=== PATIENT | female | born 1940 | race Caucasian/White ===

== ENCOUNTER 2022-01-30 16:57 | Inpatient (IN) | payer OTHER ==
[2022-01-30 18:17] LABS: SARS-COV-2 RT PCR NEGATIVE (NEGATIVE)
--- OUTSIDE RECORDS SUMMARY | 2022-01-30 18:40 | XMS REPORT | Continuity of Care Document ---
:1940 Author Organization [facility] t Address [address] [place] [address] Care Team Providers Name Role Phone Glenda V Primary Care Physician DANY PINO Attending Clinician Unavailable Nurse, Pob Immunization Attending Clinician Unavailable Dany Pino DO Attending Clinician Celia Berg DO Attending Clinician Nurse, Urgent Care Attending Clinician Unavailable Bianka FOOD SERVICE AIDE Attending Clinician BIANKA Attending Clinician Unavailable Lab, Fam Pob I Attending Clinician Unavailable Karoline Barry Attending Clinician Karoline PRAJAPATI Attending Clinician Unavailable Doctor Unassigned, Name Attending Clinician Unavailable Payers Payer Name Policy Type Policy Number Effective Date Expiration Date S ource MEDICARE PART A [id number] 2007 \T\ B 00:00:00 Problems Condition Condition Condition Status Onset Resolution Last Treating Co mments Source Name Details Category Date Date Treatment Clinician Date Influenza Influenza Disease Active Uni vers 12-27 ity of 00:00: [address] Allergies, Adverse Reactions, Alerts Allergy Allergy Status Severity Reaction(s) Onset Inactive Treating Comm ents Source Name Type Date Date Clinician BENZALKO DRUG Active Rash 2016-10 Univers NIUM INGREDI 2- ity of CHLORIDE 00:00: [address] Branch Adhesive Propensi Active Rash 2016-10 Univer s ty to 2-19 ity of adverse 00:00: [place] reaction 00 Medical s Branch Prochlor Propensi Active Extra 2016-10 Univer s perazine ty to pyramidal 2-19 ity o f Edisylat adverse effects 00:00: [place] e reaction 00 Medical Branch Benzalko Propensi Active Rash 2016-10 Univer s nium ty to 2-19 ity of Chloride adverse 00:00: [place] reaction 00 [facility] Branch ADHESIVE Drug Active Rash 2016-10 Univers Class 2-19 ity of 00:00: [place] 00 [facility] Branch PROCHLOR DRUG Active EP Effects 2016-10 Univ ers PERAZINE INGREDI 11-23 ity of EDISYLAT 00:00: [place] E 00 Medical Branch Social History Social Habit Start Date Stop Date Quantity Comments Source Exposure to Not sure [facility]-CoV-2 [facility] (event) [place] Alcohol intake 2021-05-11 2021-05-11 Current University 00:00:00 00:00:00 non-drinker of [facility] alcohol [place] (finding) Tobacco use and 2018-12-25 2018-12-25 Never used Universit y of exposure 00:00:00 00:00:00 [facility] Sex Assigned At [birth year] Universit y of 00:00:00 00:00:00 [facility] Smoking Status Start Date Stop Date Source Never smoker [facility] Medications Ordered Filled Start Stop Current Ordering Indication Dosage Frequency Signature Comments Components Source Medication Medication Date Date Medication? Clinician (SIG) Name Name fluorescein 2020- No 1{strip 1 Strip, Univers (FUL-ISRRAEL) 05-11 } Left Eye, ity of ophthalmic 20:30: 19:29 ONCE, 1 [place] as strip 1 00 :00 dose, [facility] Strip 05/11/21 at Branch 1530, Routine
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
Reaso n for non-formul monisha use: SPECIFIC INDICATION FOR NONFORMULA RY PRODUCT tetracaine 2020- No 1[drp] 1 Drop, U nivalexis (PONTOCAINE 05-11 Left Eye, it y of ) 0.5 % 20:30: 19:29 ONCE, 1 [place] ophthalmic 00 :00 dose, Sat Medi wolfgang drops 1 05/11/21 at Branch Drop 1530, Routine ALPRAZolam Yes [id number] .25mg Take 1 Univers (XANAX) 3-28 tablet by ity of 0.25 mg 00:00: mouth 3 [place] tablet 00 (three) Medical times Branch daily as needed for Other (stress). ALPRAZolam Yes [id number] .25mg Take 1 Univers (XANAX) 3-28 tablet by ity of 0.25 mg 00:00: mouth 3 [place] tablet 00 (three) Medical times Branch daily as needed for Other (stress). ALPRAZolam Yes [id number] .25mg Take 1 Univers (XANAX) 3-28 tablet by ity of 0.25 mg 00:00: mouth 3 [place] tablet 00 (three) Medical times Branch daily as needed for Other (stress). ALPRAZolam Yes [id number] .25mg Take 1 Univers (XANAX) 3-28 tablet by ity of 0.25 mg 00:00: mouth 3 [place] tablet 00 (three) Medical times Branch daily as needed for Other (stress). ALPRAZolam Yes [id number] .25mg Take 1 Univers (XANAX) 3-28 tablet by ity of 0.25 mg 00:00: mouth 3 [place] tablet 00 (three) Medical times Branch daily as needed for Other (stress). ALPRAZolam Yes [id number] .25mg Take 1 Univers (XANAX) 3-28 tablet by ity of 0.25 mg 00:00: mouth 3 [place] tablet 00 (three) Medical times Branch daily as needed for Other (stress). ALPRAZolam Yes [id number] .25mg Take 1 Univers (XANAX) 3-28 tablet by ity of 0.25 mg 00:00: mouth 3 [place] tablet 00 (three) Medical times Branch daily as needed for Other (stress). ALPRAZolam 0 Yes [id number] .25mg Take 1 Univers (XANAX) 3-28 tablet by ity of 0.25 mg 00:00: mouth 3 [place] tablet 00 (three) Medical times Branch daily as needed for Other (stress). ALPRAZolam Yes [id number] .25mg Take 1 Univers (XANAX) 3-28 tablet by ity of 0.25 mg 00:00: mouth 3 [place] tablet 00 (three) Medical times Branch daily as needed for Other (stress). ALPRAZolam Yes [id number] .25mg Take 1 Univers (XANAX) 3-28 tablet by ity of 0.25 mg 00:00: mouth 3 [place] tablet 00 (three) Medical times Branch daily as needed for Other (stress). adalimumab Yes inject Unive rs 40 mg/0.8 3-27 under the ity o f mL 20:59: skin. [place] injection 15 Medical Branch zolpidem Yes 10mg Take 10 mg Uni vers (AMBIEN) 10 3-27 by mouth ity of mg tablet 20:59: at bedtime [place] 15 as needed Medical for Branch Insomnia. adalimumab Yes inject Unive rs 40 mg/0.8 3-27 under the ity o f mL 20:59: skin. [place] injection 15 Medical Branch zolpidem Yes 10mg Take 10 mg Uni vers (AMBIEN) 10 3-27 by mouth ity of mg tablet 20:59: at bedtime [place] 15 as needed Medical for Branch Insomnia. adalimumab Yes inject Unive rs 40 mg/0.8 3-27 under the ity o f mL 20:59: skin. [place] injection 15 Medical Branch zolpidem Yes 10mg Take 10 mg Uni vers (AMBIEN) 10 3-27 by mouth ity of mg tablet 20:59: at bedtime [place] 15 as needed Medical for Branch Insomnia. adalimumab Yes inject Unive rs 40 mg/0.8 3-27 under the ity o f mL 20:59: skin. [place] injection 15 Medical Branch zolpidem Yes 10mg Take 10 mg Uni vers (AMBIEN) 10 3-27 by mouth ity of mg tablet 20:59: at bedtime [place] 15 as needed Medical for Branch Insomnia. adalimumab Yes inject Unive rs 40 mg/0.8 3-27 under the ity o f mL 15:59: skin. [place] injection 15 Medical Branch zolpidem Yes 10mg Take 10 mg Uni vers (AMBIEN) 10 3-27 by mouth ity of mg tablet 15:59: at bedtime [place] 15 as needed Medical for Branch Insomnia. loperamide 2019-0 Yes [id number] 2mg Take 1 Univers 2 mg 3-27 capsule by ity of capsule 00:00: mouth [place] 00 every 4 Medical (four) Branch hours as needed for Diarrhea. levoFLOXaci 2019-0 Yes [id number] 750mg Take 1 Univers n 750 mg 3-27 tablet by ity of tablet 00:00: mouth [place] 00 every 24 Medical (twenty-fo Branch ur) hours. benzonatate 2019-0 Yes [id number] 100mg Take 1 Univers 100 mg 3-27 capsule by ity of capsule 00:00: mouth 3 [place] 00 (three) Medical times Branch daily as needed for Cough. loperamide 2019-0 Yes [id number] 2mg Take 1 Univers 2 mg 3-27 capsule by ity of capsule 00:00: mouth [place] 00 every 4 Medical (four) Branch hours as needed for Diarrhea. levoFLOXaci 2019-0 Yes [id number] 750mg Take 1 Univers n 750 mg 3-27 tablet by ity of tablet 00:00: mouth [place] 00 every 24 Medical (twenty-fo Branch ur) hours. benzonatate 2019-0 Yes [id number] 100mg Take 1 Univers 100 mg 3-27 capsule by ity of capsule 00:00: mouth 3 [place] 00 (three) Medical times Branch daily as needed for Cough. loperamide 2019-0 Yes [id number] 2mg Take 1 Univers 2 mg 3-27 capsule by ity of capsule 00:00: mouth [place] 00 every 4 Medical (four) Branch hours as needed for Diarrhea. levoFLOXaci 2019-0 Yes [id number] 750mg Take 1 Univers n 750 mg 3-27 tablet by ity of tablet 00:00: mouth [place] 00 every 24 Medical (twenty-fo Branch ur) hours. benzonatate 2019-0 Yes [id number] 100mg Take 1 Univers 100 mg 3-27 capsule by ity of capsule 00:00: mouth 3 [place] 00 (three) Medical times Branch daily as needed for Cough. loperamide 2019-0 Yes [id number] 2mg Take 1 Univers 2 mg 3-27 capsule by ity of capsule 00:00: mouth [place] 00 every 4 Medical (four) Branch hours as needed for Diarrhea. levoFLOXaci 2019-0 Yes [id number] 750mg Take 1 Univers n 750 mg 3-27 tablet by ity of tablet 00:00: mouth [place] 00 every 24 Medical (twenty-fo Branch ur) hours. benzonatate 2019-0 Yes [id number] 100mg Take 1 Univers 100 mg 3-27 capsule by ity of capsule 00:00: mouth 3 [place] 00 (three) Medical times Branch daily as needed for Cough. loperamide 2019-0 Yes [id number] 2mg Take 1 Univers 2 mg 3-27 capsule by ity of capsule 00:00: mouth [place] 00 every 4 Medical (four) Branch hours as needed for Diarrhea. levoFLOXaci 2019-0 Yes [id number] 750mg Take 1 Univers n 750 mg 3-27 tablet by ity of tablet 00:00: mouth [place] 00 every 24 Medical (twenty-fo Branch ur) hours. benzonatate 2019-0 Yes [id number] 100mg Take 1 Univers 100 mg 3-27 capsule by ity of capsule 00:00: mouth 3 [place] 00 (three) Medical times Branch daily as needed for Cough. ondansetron 2018- Yes 4mg Take 1 Univ ers (ZOFRAN 2-15 tablet by ity of ODT) 4 mg 00:00: mouth [place] disintegrat 00 every 8 Medic al ing tablet (eight) Branch hours as needed for Nausea and Vomiting (N/V). ondansetron 2018- Yes 4mg Take 1 Univ ers (ZOFRAN 2-15 tablet by ity of ODT) 4 mg 00:00: mouth [place] disintegrat 00 every 8 Medic al ing tablet (eight) Branch hours as needed for Nausea and Vomiting (N/V). ondansetron 2018- Yes 4mg Take 1 Univ ers (ZOFRAN 2-15 tablet by ity of ODT) 4 mg 00:00: mouth [place] disintegrat 00 every 8 Medic al ing tablet (eight) Branch hours as needed for Nausea and Vomiting (N/V). ondansetron 2018-1 Yes 4mg Take 1 Univ ers (ZOFRAN 2-15 tablet by ity of ODT) 4 mg 00:00: mouth [place] disintegrat 00 every 8 Medic al ing tablet (eight) Branch hours as needed for Nausea and Vomiting (N/V). ondansetron 2018- Yes 4mg Take 1 Univ ers (ZOFRAN 2-15 tablet by ity of ODT) 4 mg 00:00: mouth [place] disintegrat 00 every 8 Medic al ing tablet (eight) Branch hours as needed for Nausea and Vomiting (N/V). naproxen 2016-10 Yes 550mg Take 1 Univer s sodium 2-19 tablet by ity of (ANAPROX 00:00: mouth 2 [place] DS) 550 mg 00 (two) Medical tablet times Branch daily with meals. naproxen 2016-10 Yes 550mg Take 1 Univer s sodium 2-19 tablet by ity of (ANAPROX 00:00: mouth 2 [place] DS) 550 mg 00 (two) Medical tablet times Branch daily with meals. naproxen 2016-10 Yes 550mg Take 1 Univer s sodium 2-19 tablet by ity of (ANAPROX 00:00: mouth 2 [place] DS) 550 mg 00 (two) Medical tablet times Branch daily with meals. naproxen 2016-10 Yes 550mg Take 1 Univer s sodium 2-19 tablet by ity of (ANAPROX 00:00: mouth 2 [place] DS) 550 mg 00 (two) Medical tablet times Branch daily with meals. naproxen 2016-10 Yes 550mg Take 1 Univer s sodium 2-19 tablet by ity of (ANAPROX 00:00: mouth 2 [place] DS) 550 mg 00 (two) Medical tablet times Branch daily with meals. Immunizations Ordered Filled Immunization Date Status Comments [facility] Immunization Name Name SARS-COV-2 COVID-19 2021-08-[address] [facility] PFIZER VACCINE 00:00:00 [facility] Td 2021-05-11 Completed [facility] 00:00:00 [facility] Td 2021-05-11 Completed [facility] 00:00:00 [facility] Vital Signs Vital Name Observation Time Observation Value Comments Source Systolic blood 2021-05-11 19:02:00 208 mm[Hg] Univer sity of pressure [facility] Diastolic blood 2021-05-11 19:02:00 95 mm[Hg] Unive rsity of pressure [facility] Heart rate 2021-05-11 19:02:00 78 /min [facility] Body temperature 2021-05-11 19:02:00 36.61 Jayda [facility] Respiratory rate 2021-05-11 19:02:00 16 /min [facility] Body height 2021-05-11 19:02:00 165.1 cm [facility] Body weight 2021-05-11 19:02:00 77.111 kg [facility] BMI 2021-05-11 19:02:00 28.29 kg/m2 [facility] Oxygen saturation in 2021-05-11 19:02:00 96 /min University of Arterial blood by [facility] Pulse oximetry Branch Systolic blood 2021-05-11 18:40:00 204 mm[Hg] Univer sity of [facility] Diastolic blood 2021-05-11 18:40:00 100 mm[Hg] Unive rsity of [facility] Heart rate 2021-05-11 18:38:00 77 /min [facility] Body temperature 2021-05-11 18:38:[address] [facility] rate 2021-05-11 18:38:00 18 /min [facility] O[facility] in 2021-05-11 18:38:00 97 /min [facility] Arterial blood by [facility] Pulse oximetry Branch Procedures Procedure Date / Time Performed Performing Clinician Sour e SARS-COV-2 COVID-19 2021-08-21 20:58:20 Doctor Unassigned, No [facility] [place] VACCINE,0.3ML,IM [facility] (PFIZER) CONSENT/REFUSAL FOR 2021-05-11 18:50:42 Doctor Unassigned, No [facility] [place] DIAGNOSIS AND Name Medical [place] TREATMENT ASSIGNMENT OF BENEFITS 2020-07-19 18:54:15 Doctor Unassigned, No [facility] Encounters Start End Encounter Admission Attending Care Care Encounter Source Date/Time Date/Time Type Type Clinicians Facility Department ID 2021-08-05 Emergency [facility] [id number] Univers 13:51:26 logan [facility] 2021-08-21 2021-08-21 Outpatient Germaine PINO [facility] [id number] Univers 13:30:00 13:29:40 FELIZ ford [facility] 2021-08-21 2021-08-21 Imm/Inj Nurse, Adc Pob Immunization [facility] [id number] Univers 13:29:27 13:29:40 Visit Feliz Pinoan AMANDEEP [id number] .10 ity of [id number] [phone] Tn dical NAL [address] [facility] 2021-05-11 2021-05-11 Emergency Jani, [facility] [id number] Univers 13:56:00 15:29:00 Eugenia Yang [place] [id number] ity of [place] [id number] [place] [phone] [facility] 084 [place] 2021-05-11 2021-05-11 Nurse Nurse, [facility] [id number] Univers 13:36:41 13:53:33 Visit Tiffany Vargastany [facility] [id number] ity of [place] [id number] Toy as Professio [phone] Tn dical nal 044 [place] Office [facility] 2021-05-11 2021-05-11 Outpatient R [facility] [id number] Univers 13:45:00 13:45:00 [id number] ity [facility] 2021-05-11 2021-05-11 Outpatient R BIANKA [facility] [id number] Univers 13:45:00 13:45:00 SHANI ortiznimisha o f [facility] 2020-07-19 2020-07-19 Laboratory Lab, [facility] Fam Pob I [facility] [id number]. [id number] Univers 13:56:32 14:16:32 Only Luly Prajapati [facility] [id number] ity of [place] [id number] Toy as Professio [phone] Tn dical nal 044 [place] Office [facility] 2020-07-19 2020-07-19 Outpatient R ENZO [facility] [id number] Univers 14:00:00 14:00:00 LULY ity [facility] 2020-07-19 2020-07-19 Outpatient R [facility] [id number] Univers 13:40:00 13:40:00 ity [facility] 2020-07-19 2020-07-19 Outpatient R [facility] [id number] Univers 13:40:00 13:40:00 [id number] ity of [facility] 2020-07-19 2020-07-19 Orders Doctor KATHIE [id number] Univers 00:00:00 00:00:00 Only Unassigned, V[place] [id number] ity of [place] [facility] [id number] Toy as [phone] [place] [address] Branch Results This patient has no known results.
[2022-01-30] MEDS ORDERED: ACETAMINOPHEN 325 MG TABLET PO PRN (21:10)
[2022-01-30 21:11] LABS: Absolute Lymphocytes (CBC) 2.1 K/uL (0.7-4.9); Hematocrit 41.4 % (36.0-45.0); Lymphocytes % 17.4 % (15.3-44.8); MPV 7.8 fL (7.6-11.3); RBC Red Blood Cell Count 4.84 M/uL (3.86-4.86)
[2022-01-30 21:16] LABS: Protime INR 0.97
[2022-01-30 21:38] LABS: Albumin 3.9 g/dL (3.4-5.0); Bilirubin Direct 0.1 mg/dL (0-0.2); Bilirubin Total 0.8 mg/dL (0.2-1.0); Potassium 3.8 mmol/L (3.5-5.1); Protein, Total 8.1 g/dL (6.4-8.2)
[2022-01-30] MEDS ORDERED: POLYETHYL GLY 3350 17 GM/DOSE PO PRN (22:00)
[2022-01-30] MEDS ORDERED: ONDANSETRON 4 MG/2 ML VIAL IV PRN (22:00)
[2022-01-30] MEDS ORDERED: ACYCLOVIR INJ 600 MG in NA CHLORIDE 0.9% 100 ML IVPB SCH (22:00)
--- NOTE | 2022-01-30 22:16 | RAD REPORT ---
EXAM DESCRIPTION: RAD - Chest Single View - 01/30/2022 10:11 pm CLINICAL HISTORY: Routine Admission Chest pain. COMPARISON: Chest Pa And Lat (2 Views) dated 04/23/2018 FINDINGS: Portable technique limits examination quality. The lungs are grossly clear. The heart is normal in size. No displaced fractures. IMPRESSION: No acute intrathoracic process suspected.
[2022-01-30] MEDS ORDERED: NA CHLORIDE 0.9% 100 ML ONE (22:24)
[2022-01-30] MEDS: NACHLORIDE 0.45% 1,000 ML IV SCH (22:31)
[2022-01-30] MEDS: dexAMETHasone 4 MG/ML VIAL IV SCH (22:31)
[2022-01-30] MEDS: HYDROMORPHONE HCL 1 MG/ML INJ IV PRN (22:48)
[2022-01-30 22:50] LABS: Phosphorus 3.7 mg/dL (2.5-4.9)
[2022-01-30 22:59] LABS: Thyroid Stimulating Hormone 4.6 uIU/mL (0.360-3.740)
[2022-01-30] MEDS: ALPRAZOLAM 0.25 MG TABLET PO PRN (23:25)
[2022-01-30 23:46] VITALS: BMI 27.8
[2022-01-31 04:36] LABS: Urine Appearance Clear (Clear); Urine Bilirubin Negative (Negative); Urine Blood Trace-intact (Negative); Urine Color Yellow (Yellow); Urine Glucose Negative (Negative); Urine Protein 1+ (Negative); Urine Specific Gravity >=1.030 (1.005-1.030); Urine Urobilinogen 0.2 mg/dL (0.2-1.0); Urine pH 5.5 (5.0-7.0)
[2022-01-31 04:40] LABS: Urine Microscopic Reflex ORDER UMIC
[2022-01-31 04:42] LABS: Calcium Oxalate Crystals- Ur MANY (NONE SEEN); Urine Bacteria 20-50 /HPF (<20); Urine Mucus 2+ /HPF (NONE SEEN)
[2022-01-31 06:11] LABS: Absolute Lymphocytes (CBC) 1.2 K/uL (0.7-4.9); Hematocrit 36.5 % (36.0-45.0); Lymphocytes % 13.4 % (15.3-44.8); MPV 8.3 fL (7.6-11.3); RBC Red Blood Cell Count 4.23 M/uL (3.86-4.86)
[2022-01-31 06:26] LABS: Potassium 4.2 mmol/L (3.5-5.1)
[2022-01-31] MEDS ORDERED: ZOLPIDEM TARTRATE 10 MG TABLET PO PRN (07:00)
--- NOTE | 2022-01-31 07:42 | EKG ---
Test Date: 2022-01-31 Test Time: 02:44:48 Environmental Engineer: RT Cuadra MEASUREMENT RESULTS: Intervals: Rate: 84 [place]: 152 QRSD: 140 QT: 432 QTc: 510 [place]: P: 63 [place]: 152 QRS: -54 T: 97 INTERPRETIVE STATEMENTS: Normal sinus rhythm with sinus arrhythmia Left axis deviation Left bundle branch block Abnormal ECG Compared to ECG 01/31/2022 02:44:04 Uncertain supraventricular rhythm no longer present Electronically Signed On 01-31-22 07:42:05 CDT by Kyle Bell
--- NOTE | 2022-01-31 07:42 | EKG ---
Test Date: 2022-01-31 Test Time: 02:46:06 Medical Technologist Chemistry: RT Cuadra MEASUREMENT RESULTS: Intervals: Rate: 81 [place]: 140 QRSD: 72 QT: 384 QTc: 446 [place]: P: 60 [place]: 140 QRS: 71 T: -62 INTERPRETIVE STATEMENTS: Normal sinus rhythm ST & T wave abnormality, consider inferior ischemia ST & T wave abnormality, consider anterolateral ischemia Abnormal ECG Compared to ECG 01/31/2022 02:44:48 ST (T wave) deviation now present Possible ischemia now present Sinus arrhythmia no longer present Left-axis deviation no longer present Left bundle-branch block no longer present Electronically Signed On 01-31-22 07:42:04 CDT by Kyle Bell
--- NOTE | 2022-01-31 07:42 | EKG ---
Test Date: 2022-01-31 Test Time: 02:44:04 Vehicle Service Agent: RT Cuadra MEASUREMENT RESULTS: Intervals: Rate: 82 [place]: QRSD: 140 QT: 434 QTc: 507 [place]: P: IN: QRS: -56 T: 99 INTERPRETIVE STATEMENTS: Wide QRS rhythm Left axis deviation Left bundle branch block Abnormal ECG No previous ECG available for comparison Electronically Signed On 01-31-22 07:42:06 CDT by Kyle Bell
[2022-01-31] MEDS ORDERED: PNEUMOCOCCAL VACCINE 0.5 ML IMVAC ONE (08:00)
[2022-01-31] MEDS ORDERED: ACYCLOVIR INJ 600 MG in NA CHLORIDE 0.9% 100 ML IVPB SCH (09:00)
[2022-01-31] MEDS: LOSARTAN POTASSIUM 50 MG TABLET PO SCH (10:00)
[2022-01-31] MEDS: dexAMETHasone 4 MG/ML VIAL IV SCH ×2 (10:00→20:48)
--- NOTE | 2022-01-31 13:03 | P.PN ---
Subjective Date of Service: 01/31/22 Chief Complaint: PAIN AND REDNESS IMPROVED. Subjective: Improving SHE HAS SEVERE DISSEMINATED SHINGLES RASH Physical Examination - Vital Signs Temperature: 96.7 F Blood Pressure: 173/74 Pulse: 80 Respirations: 18 Pulse Ox (%): 95 - Physical Exam General: Oriented x3, Mild distress, Moderate distress HEENT: Atraumatic, PERRLA, EOMI Neck: Supple, JVD not distended Respiratory: Clear to auscultation bilaterally, Normal air movement Cardiovascular: Regular rate/rhythm, Normal S1 S2 Gastrointestinal: Normal bowel sounds, No tenderness Musculoskeletal: No tenderness Integumentary: No rashes, Skin breakdown (SEVERE R SIDE SHINGLES RASH. ) Neurological: Normal speech, Normal tone, Normal affect Lymphatics: No axilla or inguinal lymphadenopathy - Studies Laboratory Data (last 24 hrs) 01/31/22 05:43: Sodium 139, Potassium 4.2, BUN 24 H, Creatinine 0.85, Glucose 145 H, Magnesium 2.0 01/31/22 05:43: WBC 9.0 D, Hgb 12.5, Hct 36.5, Plt Count 292 01/30/22 21:09: Phosphorus 3.7, Magnesium 2.0 01/30/22 20:53: PT 10.7, INR 0.97, APTT 26.8 01/30/22 20:53: Sodium 140, Potassium 3.8, BUN 25 H, Creatinine 1.12, Glucose 100, Total Bilirubin 0.8, AST 17, ALT 27, Alkaline Phosphatase 59 01/30/22 20:53: WBC 12.4 H, Hgb 14.0, Hct 41.4, Plt Count 355 Medications List Reviewed: Yes Assessment And Plan - Current Problems (Diagnosis) (1) Disseminated herpes zoster Current Visit: Yes Status: Acute Plan: SEVERE RASH. ACYCLOVIR IV WORKED. VALTREX FAILED ORAL. ALSO IV STEROIDS HELPED A LOT. DC IN AM POSSIBLE. (2) Atrial fibrillation, chronic Current Visit: Yes Status: Chronic Plan: STABLE NO NEW ISSUES.
[2022-01-31] MEDS: DIPHENHYDRAMINE 25 MG TAB/CAP PO PRN (14:21)
[2022-01-31] MEDS: ALPRAZOLAM 0.25 MG TABLET PO PRN ×2 (14:32→21:03)
[2022-01-31] MEDS: LOPERAMIDE HCL 2 MG CAPSULE PO PRN ×2 (14:32→21:03)
[2022-01-31] MEDS: ACYCLOVIR IVPB SCH (20:48)
[2022-01-31] MEDS: NA CHLORIDE 0.9% IVPB SCH (20:48)
[2022-01-31] MEDS: HYDROMORPHONE HCL 1 MG/ML INJ IV PRN (22:38)
[2022-02-01] MEDS: LOSARTAN POTASSIUM 50 MG TABLET PO SCH (08:23)
[2022-02-01] MEDS: ALPRAZOLAM 0.25 MG TABLET PO PRN (08:23)
[2022-02-01] MEDS: DIPHENHYDRAMINE 25 MG TAB/CAP PO PRN ×2 (08:23→21:30)
--- NOTE | 2022-02-01 08:23 | P.PN ---
Subjective Date of Service: 02/01/22 Chief Complaint: LOT BETTER Subjective: Improving SHE HAS SEVERE DISSEMINATED SHINGLES RASH THERE IS SIGNIFICANT IMPROVEMENT IN HER PAIN AND ITCHING. Physical Examination - Vital Signs Temperature: 97.3 F Blood Pressure: 166/75 Pulse: 76 Respirations: 18 Pulse Ox (%): 92 - Physical Exam General: Oriented x3, Mild distress HEENT: Atraumatic, PERRLA, EOMI Neck: Supple, JVD not distended Respiratory: Clear to auscultation bilaterally, Normal air movement Cardiovascular: Regular rate/rhythm, Normal S1 S2 Gastrointestinal: Normal bowel sounds, No tenderness Musculoskeletal: No tenderness Integumentary: No rashes Neurological: Normal speech, Normal tone, Normal affect Lymphatics: No axilla or inguinal lymphadenopathy - Studies Medications List Reviewed: Yes Assessment And Plan - Current Problems (Diagnosis) (1) Disseminated herpes zoster Current Visit: Yes Status: Acute Plan: SEVERE RASH. ACYCLOVIR IV WORKED. VALTREX FAILED ORAL. ALSO IV STEROIDS HELPED A LOT. DC IN AM POSSIBLE. STOP STEROIDS, KEEP ONE MORE DAY TO MAKE SURE IT DOES NOT SPREAD. (2) Atrial fibrillation, chronic Current Visit: Yes Status: Chronic Plan: STABLE NO NEW ISSUES. RESOLVED FROM BEFORE. 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
[2022-02-01] MEDS: LOPERAMIDE HCL 2 MG CAPSULE PO PRN (09:18)
[2022-02-01] MEDS: NA CHLORIDE 0.9% IVPB SCH ×2 (09:53→21:29)
[2022-02-01] MEDS: ACYCLOVIR IVPB SCH ×2 (09:53→21:29)
[2022-02-01] MEDS: NACHLORIDE 0.45% 1,000 ML IV SCH (09:53)
[2022-02-01] MEDS ORDERED: ENOXAPARIN 30 MG/0.3 ML SQ SCH (17:00)
[2022-02-01] MEDS ORDERED: ENOXAPARIN 40 MG/0.4 ML SQ SCH (18:00)
[2022-02-01] MEDS ORDERED: AMLODIPINE 5 MG TAB ONE (18:46)
[2022-02-01] MEDS ORDERED: AMLODIPINE 5 MG TAB PO SCH (19:00)
[2022-02-01] MEDS ORDERED: cloNIDine HCL 0.1 MG TAB PO PRN (20:43)
[2022-02-01] MEDS: HYDROMORPHONE HCL 1 MG/ML INJ IV PRN (21:31)
[2022-02-01 23:48] VITALS: O2SAT 96
--- NOTE | 2022-02-02 09:15 | P.DS ---
Admission Date: 01/31/22 Discharge Date: 02/02/22 Disposition: ROUTINE DISCHARGE Discharge Condition: FAIR Reason for Admission: LOT BETTER - Problems (1) Disseminated herpes zoster Current Visit: Yes Status: Acute (2) Atrial fibrillation, chronic Current Visit: Yes Status: Chronic Hospital Course: MS. IYER IS DOING LOT BETTER. HER SHINGLES ARE NOT PAINFUL MUCH ANY LONGER. THAT IS GREAT NEWS MANY SHINGLES PATIENTS HURT FOR A LONG DURATION. Vital Signs/Physical Exam: Temp Pulse Resp BP Pulse Ox 97.0 F 67 18 155/69 H 94 02/02/22 04:00 02/02/22 04:00 02/02/22 04:00 02/02/22 04:00 02/02/22 04:00 General: Alert, In no apparent distress HEENT: Atraumatic, PERRLA, EOMI Neck: Supple, JVD not distended Respiratory: Clear to auscultation bilaterally, Normal air movement Cardiovascular: Regular rate/rhythm, Normal S1 S2 Gastrointestinal: Normal bowel sounds, No tenderness Musculoskeletal: No tenderness Integumentary: Rash(es) (DRIED SHINGLES COVERING R SIDE CHEST WALL AND NECK. ) Neurological: Normal speech, Normal tone, Normal affect Lymphatics: No axilla or inguinal lymphadenopathy Laboratory Data at Discharge: WBC 9.0 K/uL (4.3-10.9) D 01/31/22 05:43 Hgb 12.5 g/dL (12.0-15.0) 01/31/22 05:43 Hct 36.5 % (36.0-45.0) 01/31/22 05:43 Plt Count 292 K/uL (152-406) 01/31/22 05:43 PT 10.7 SECONDS (9.5-12.5) 01/30/22 20:53 INR 0.97 01/30/22 20:53 APTT 26.8 SECONDS (24.3-36.9) 01/30/22 20:53 Sodium 139 mmol/L (136-145) 01/31/22 05:43 Potassium 4.2 mmol/L (3.5-5.1) 01/31/22 05:43 BUN 24 mg/dL (7-18) H 01/31/22 05:43 Creatinine 0.85 mg/dL (0.55-1.3) 01/31/22 05:43 Glucose 145 mg/dL (74-106) H 01/31/22 05:43 Phosphorus 3.7 mg/dL (2.5-4.9) 01/30/22 21:09 Magnesium 2.0 mg/dL (1.8-2.4) 01/31/22 05:43 Total Bilirubin 0.8 mg/dL (0.2-1.0) 01/30/22 20:53 AST 17 U/L (15-37) 01/30/22 20:53 ALT 27 U/L (12-78) 01/30/22 20:53 Alkaline Phosphatase 59 U/L (45-117) 01/30/22 20:53 Home Medications: Calcium Carbonate/Vitamin D3 [Caltrate 600 Plus D3 Tablet] 1 tab PO DAILY 01/31/22 Losartan Potassium 1 tab PO DAILY 01/31/22 Zolpidem Tartrate 1 tab PO SEECOM 01/31/22 Amlodipine [Norvasc*] 5 mg PO DAILY #90 tab 02/02/22 New Medications: Amlodipine [Norvasc*] 5 mg PO DAILY #90 tab Followup: James Doshi MD [ACTIVE - CAN ADMIT] - 1 Week (Call to schedule an appointment )
[2022-02-02 10:08] VITALS: BP 160/67; TEMP 97
[2022-02-02 11:31] LABS: Urine Appearance Clear (Clear); Urine Bilirubin Negative (Negative); Urine Blood 2+ (Negative); Urine Color Yellow (Yellow); Urine Glucose Negative (Negative); Urine Protein 2+ (Negative); Urine Specific Gravity >=1.030 (1.005-1.030); Urine Urobilinogen 0.2 mg/dL (0.2-1.0); Urine pH 5.5 (5.0-7.0)
[2022-02-02 11:32] LABS: Urine Microscopic Reflex ORDER UMIC
[2022-02-02 11:37] LABS: Urine Bacteria 20-50 /HPF (<20); Urine Mucus 2+ /HPF (NONE SEEN)
[2022-02-03 23:02] LABS: Vitamin D 1,25-Dihydroxy Total 59 pg/mL (18-72); Vitamin D,1,25-OH2, D2 <8 pg/mL
== END 2022-02-02 10:58 | disposition home or self-care (01) | DRG 596 ==
LOC: 2ND 18:38 → OBSVTOIN 01-31 17:44
PROVIDERS: ADMIT Internal Medicine; ATTEND Internal Medicine
DX: B02.9 Zoster without complications (principal); I48.20 Chronic atrial fibrillation, unspecified; Z20.822 Contact with and (suspected) exposure to COVID-19
CPT/HCPCS: 0240U; 36415; 71045; 80048; 80076; 81003; 81015; 82607; 82652; 83735; 84100; 84439; 84443; 85025; 85610; 85730; 87077; 87086; 87088; 87186; 90732; 93005; G0378; G0379; J0133; J1100; J1170; J1650